=== PATIENT | male | born 1990 | race Caucasian/White ===

== ENCOUNTER 2022-04-15 09:59 | Emergency (ER) | payer OTHER, SELFPAY ==
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
[2022-04-15 10:09] VITALS: BP 123/76; PULSE 93; RESP 20; TEMP 36.3; O2SAT 100
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
[2022-04-15] MEDS: IBUPROFEN 600 MG TABLET PO (11:08)
[2022-04-15] MEDS: ACETAMINOPHEN 500 MG TABLET 1000 MG PO (11:08)
[2022-04-15 11:14] VITALS: BP 125/85
== END 2022-04-15 11:18 | disposition home or self-care (01) ==
PROVIDERS: Emergency Provider Emergency Medicine
DX: S29.9XXA Unspecified injury of thorax, initial encounter (principal); V49.40XA Driver injured in collision with unspecified motor vehicles in traffic accident, initial encounter
CPT/HCPCS: 72128; 99284; A9270

== ENCOUNTER 2023-06-28 08:58 | Emergency (ER) | payer OTHER, SELFPAY ==
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
[2023-06-28 09:14] VITALS: BP 144/87; PULSE 89; RESP 16; TEMP 36.1; O2SAT 98
== END 2023-06-28 09:36 | disposition short-term general hospital (02) ==
PROVIDERS: Emergency Provider Nurse Practitioner Family
DX: N39.0 Urinary tract infection, site not specified (principal); Z79.899 Other long term (current) drug therapy
CPT/HCPCS: 81003; 99213; G0463

== ENCOUNTER 2023-09-08 10:33 | Emergency (ER) | payer OTHER, SELFPAY ==
[2023-09-08 10:46] VITALS: BP 121/85; PULSE 94; RESP 16; TEMP 36.7; O2SAT 99
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
== END 2023-09-08 11:40 | disposition left against medical advice (07) ==
PROVIDERS: Emergency Provider Nurse Practitioner
DX: M54.50 Low back pain, unspecified (principal)
CPT/HCPCS: 81003; 99213; G0463

== ENCOUNTER 2023-09-11 08:23 | Emergency (ER) | payer OTHER, SELFPAY ==
--- NOTE | ~2023-09-11 | CT_ITS ---
EXAMINATION: CT abd pelvis lumbar w con INDICATION: Diffuse abdominal and back pain. TECHNIQUE: Computed tomographic images of the abdomen, pelvis, and lumbar spine were obtained after t he administration of 100 cc of Omnipaque 350 intravenous contrast. The dose-length product (DLP) was 1776.94 mGy-cm. Automated exposure control and iterative reconstruction technique were employed. COMPARISON: None available FINDINGS: Abdomen/pelvis: Minimal dependent atelectasis is present in the lung bases. The heart size is normal. Respiratory motion artifact somewhat limits the examination. There is a small amount of liquid mater ial in the distal esophagus. The liver is diffusely low in attenuation when compared with the spleen, consistent with hepatic steatosis. The spleen, pancreas, gallbladder, and adrenal glands appear norm al despite moderate motion artifact. The kidneys are unremarkable. No pathologically enlarged abdomin al or pelvic lymph nodes are identified. No free intraperitoneal gas or evidence of bowel obstruction . The appendix is normal. Lumbar spine: Bone alignment is normal. There is no fracture. There is mild loss of intervertebral di sc space height at L5-S1. The vertebral body heights are maintained. IMPRESSION: 1. No CT correlate for the patient's symptoms. 2. Mild lumbar spondylosis at L5-S1. Reviewed, dictated and finalized at location B. NESS PROCESS ARCHITECT
[2023-09-11 08:24] VITALS: BP 136/82; PULSE 71; RESP 18; TEMP 36.7; O2SAT 98
[2023-09-11 08:34] VITALS: BP 143/79; O2SAT 95
[2023-09-11 08:47] VITALS: BP 137/84; O2SAT 98
[2023-09-11 09:02] VITALS: BP 146/129; O2SAT 100
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
--- NOTE | 2023-09-11 11:21 | PC.NURSE ---
Pt taken to CT
[2023-09-11 11:24] LABS: Estimated CRCL calculation 183 ml/min; Estimated Glomerular Filt Rate > 60
[2023-09-11 11:43] LABS: Basophils Absolute Auto 0.1 K/mm3 (0.0-0.1); Basophils Percent Auto 0.8 % (0.2-1.2); Eosinophils Absolute Auto 0.1 K/mm3 (0-0.3); Eosinophils Percent Auto 0.8 % (0-4.4); Hemoglobin 15.7 g/dL (14.0-18.0); Immature Granulocyte Absolute 0.04 K/mm3 (0.00-0.031); Immature Granulocyte Percent A 0.7 % (0-0.5); Lymphocytes Absolute Auto 1.97 K/mm3 (0.9-3.2); Lymphocytes Percent Auto 33.4 % (18.3-44.2); Mean Corpuscular HGB Conc 32.7 g/dl (32-36); Mean Corpuscular Hemoglobin 29.2 pg (26-34); Mean Corpuscular Volume 89.2 fl (80-100); Mean Platelet Volume 9.2 fl (7.4-10.4); Monocytes Absolute Auto 0.5 K/mm3 (0.1-0.6); Monocytes Percent Auto 8.1 % (2.6-8.5); Neutrophils Absolute Auto 3.3 K/mm3 (1.3-6.7); Neutrophils Percent Auto 56.2 % (45.5-73.1); Platelet Count Result 250 k/mm3 (150-375); Red Blood Count 5.38 M/mm3 (4.6-6.20); Red Cell Distribution Width 13.2 % (11.5-14.5); White Blood Count 5.9 K/mm3 (4.5-10.0)
[2023-09-11 11:43] LABS: Appearance Urine Clear (Clear); Bilirubin Urine Negative (Negative); Blood Urine Negative (Negative); Color Urine Yellow (Yellow); Glucose Urine UA Negative (Negative); Ketones Urine Negative (Negative); Leukocyte Esterase Ur Negative LEU/UL (Negative); Nitrate Urine Negative (Negative); Protein Urine Negative (Negative); Specific Grav Ur 1.019 (1.001-1.035); Urobilinogen Urine 0.2 mg/dL (<2.0)
[2023-09-11 11:53] LABS: Alanine Aminotransferase 43 U/L (6-50); Albumin Level 4.7 g/dL (3.5-5.1); Alkaline Phosphatase 57 U/L (38-126); Anion Gap 12 mmol/L (8-16); Aspartate Amino Transferase 34 U/L (17-59); Bilirubin,Total 0.6 mg/dL (0.2-1.3); Blood Urea Nitrogen 16 mg/dL (9-20); Calcium 9.3 mg/dL (8.4-10.2); Carbon Dioxide 21 mmol/L (22-30); Chloride 106 mmol/L (98-107); Estimated CRCL calculation 183 ml/min; Estimated Glomerular Filt Rate > 60; Glucose 108 mg/dL (65-110); Lipase 45 U/L (23-300); Potassium 4.1 mmol/L (3.4-5.0); Sodium 139 mmol/L (137-145)
[2023-09-11 11:54] LABS: Add Urine Microscopic? NO
[2023-09-11 13:02] VITALS: BP 126/58; PULSE 79; RESP 18; O2SAT 98
== END 2023-09-11 13:04 | disposition home or self-care (01) ==
PROVIDERS: Emergency Provider Physician Assistant
DX: S39.012A Strain of muscle, fascia and tendon of lower back, initial encounter (principal); M47.816 Spondylosis without myelopathy or radiculopathy, lumbar region; R10.10 Upper abdominal pain, unspecified; F41.9 Anxiety disorder, unspecified; V00.138A Other skateboard accident, initial encounter; Y93.51 Activity, roller skating (inline) and skateboarding
CPT/HCPCS: 36415; 72132; 74177; 80053; 81003; 83690; 85025; 99284; Q9967